=== PATIENT | female | born 1985 ===

== ENCOUNTER 2018-11-30 08:35 | Emergency (ER) | payer OTHER ==
[2018-11-30 08:42] VITALS: RESP 18
--- NOTE | 2018-11-30 09:40 | ED PDOC ---
HPI: Abdomen Time Seen by Provider: 11/30/18 09:08 Chief Complaint (Nursing): Female Genitourinary Chief Complaint (Provider): lower abdominal pain History Per: Patient History/Exam Limitations: no limitations Onset/Duration Of Symptoms: Days (x1 week), Worse Since (last night) Current Symptoms Are (Timing): Still Present Location Of Pain/Discomfort: Suprapubic Quality Of Discomfort: Cramping Associated Symptoms: Nausea, Diarrhea. denies: Fever, Chills, Vomiting, Urinary Symptoms Additional Complaint(s): Светлана Flores is a 33 year old female, with no significant past medical history, who presents to the emergency department complaining of a crampy lower abdominal pain ongoing for x1 week but worst since last night. Patient states pain is associated with nausea, diarrhea and dizziness. She also reports brown spotting yesterday. Patient's LMP was on 11/02/18. She denies any fever, chills, vaginal bleeding or urinary symptoms. No further medical complaints. PMD: None provided. Abnormal Vaginal Bleeding: No Last Menstral Period: 10/26 : 1 Para: 0 Miscarriage: 0 Past Medical History Reviewed: Historical Data, Nursing Documentation, Vital Signs Vital Signs: Last Vital Signs Temp 98.4 F 11/30/18 08:41 Pulse 95 H 11/30/18 08:41 Resp 18 11/30/18 08:41 BP 119/74 11/30/18 08:41 Pulse Ox 99 11/30/18 08:41 - Medical History PMH: No Chronic Diseases Denies: Chronic Kidney Disease - Surgical History Surgical History: Appendectomy - Family History Family History: States: Unknown Family Hx - Social History Current smoker - smoking cessation education provided: No Alcohol: None Drugs: Denies - Home Medications Home Medications: Ambulatory Orders Medication Instructions Recorded Doxylamine/Pyridoxine HCl (B6) 1 each PO QPM PRN #10 tablet. 11/30/18 [Alessandra Mensah 10-10 mg Tablet] Nitrofurantoin Macrocrystals 100 mg PO BID #9 cap 11/30/18 [Macrobid] Pnv No.95/Ferrous Fum/Folic AC 1 each PO DAILY #30 tablet 11/30/18 [ Vitamins Tablet] - Allergies Allergies/Adverse Reactions: Allergies Allergy/AdvReac Type Severity Reaction Status Date / Time No Known Allergies Allergy Verified 11/30/18 08:54 Review of Systems ROS Statement: Except As Marked, All Systems Reviewed And Found Negative Constitutional: Negative for: Fever, Chills Gastrointestinal: Positive for: Nausea, Abdominal Pain, Diarrhea. Negative for: Vomiting Genitourinary Female: Positive for: Other (brown spotting). Negative for: Dysuria, Frequency, Incontinence, Vaginal Discharge, Vaginal Bleeding Neurological: Positive for: Dizziness Physical Exam - Reviewed Nursing Documentation Reviewed: Yes Vital Signs Reviewed: Yes - Physical Exam Appears: Positive for: No Acute Distress Head Exam: Positive for: ATRAUMATIC, NORMAL INSPECTION, NORMOCEPHALIC Skin: Positive for: Normal Color, Warm, Dry Eye Exam: Positive for: Normal appearance, EOMI, PERRL Neck: Positive for: Normal, Painless ROM Cardiovascular/Chest: Positive for: Regular Rate, Rhythm. Negative for: Murmur Respiratory: Positive for: Normal Breath Sounds. Negative for: Respiratory Distress Gastrointestinal/Abdominal: Positive for: Tenderness (suprapubic tenderness to bilateral lower quadrants) Back: Positive for: Normal Inspection. Negative for: L CVA Tenderness, R CVA Tenderness, Vertebral Tenderness Extremity: Positive for: Normal ROM (upper and lower extremities). Negative for: Deformity, Swelling Neurologic/Psych: Positive for: Alert, Oriented. Negative for: Motor/Sensory Deficits - Laboratory Results Result Diagrams: 11/30/18 10:43 11/30/18 10:43 - ECG O2 Sat by Pulse Oximetry: 99 (RA) Pulse Ox Interpretation: Normal Medical Decision Making Medical Decision Making: Time: 09:08 Initial Impression: abdominal pain in Initial Plan: --ABO/RH Type --Type and screen --Beta-HCG Quantitative --CMP --Urine --Urine dipstick --CBC w/ differential --PTT --PT --Urinalysis --OB Transvaginal [US] --Reevaluation 11:53 Transvaginal US FINDINGS: UTERUS: Single Live intrauterine gestation. CRL measures 4.2 cm equivalent to 11 weeks and 1 day of gestational age. Gestational sac diameter measures 4.47 cm equivalent to 10 weeks and 0 day of gestational age. age (Ultrasound estimated): 10 weeks and 4 days Date of delivery (Ultrasound estimated) : 06/24/2019 Heart rate: 167 bpm. Nancy-gestational hemorrhage: None. Uterus measures 9.8 x 8.5 x 6.1 cm. No mass CERVIX: Long and closed. There is small amount of fluid in the endocervical canal. RIGHT OVARY: Measures 2.5 x 2.9 x 2.7 cm. No mass. Normal flow. There is a 2.1 x 1.9 x 2.1 cm corpus luteum cyst. LEFT OVARY: Measures 2.8 x 1.5 x 1.4 cm. No mass. Normal flow. FREE FLUID: None. OTHER FINDINGS: None. IMPRESSION: Single live intrauterine gestation with mean gestational age of 10 weeks and 4 days. The estimated date of delivery by ultrasound is 06/24/2019. Clinical correlation and follow-up is advised. 12:25 Upon provider evaluation patient is medically stable, and requires no further treatment in the ED at this time. Patient will be discharged home. Counseling was provided and all questions were answered regarding diagnosis and need for follow up with PMD. There is agreement to discharge plan. Return if symptoms persist or worsen. Scribe Attestation: Documented by Christian Heredia, acting as a scribe for Rita Davidson MD Provider Scribe Attestation: All medical record entries made by the Scribe were at my direction and personally dictated by me. I have reviewed the chart and agree that the record accurately reflects my personal performance of the history, physical exam, medical decision making, and the department course for this patient. I have also personally directed, reviewed, and agree with the discharge instructions and disposition. Disposition - Clinical Impression Clinical Impression: Abdominal pain in , UTI (urinary tract infection) during - Disposition [facility] Disposition: Routine/Home Disposition Time: 12:25 Condition: STABLE Prescriptions: Doxylamine/Pyridoxine HCl (B6) [Alessandra Mensah 10-10 mg Tablet] 1 each PO QPM PRN #10 tablet.dr PRN Reason: Nausea/Vomiting Nitrofurantoin Macrocrystals [Macrobid] 100 mg PO BID #9 cap Pnv No.95/Ferrous Fum/Folic AC [ Vitamins Tablet] 1 each PO DAILY #30 tablet Instructions: Urinary Tract Infection, Adult (DC), Acute Abdomen (Belly Pain) Forms: [facility] (Dominican) Print Language: MONTSERRATIAN
[2018-11-30 09:57] LABS: SQUAMOUS EPITHIAL 12 /hpf (0-5); URINE BACTERIA MOD (<OCC); URINE BILIRUBIN NEGATIVE (NEGATIVE); URINE BLOOD NEGATIVE (NEGATIVE); URINE CLARITY CLOUDY (Clear); URINE COLOR YELLOW (YELLOW); URINE GLUCOSE (UA) NEG (NEGATIVE); URINE LEUKOCYTE ESTERASE NEG Leu/uL (Negative); URINE PROTEIN NEGATIVE (NEGATIVE); URINE UROBILINOGEN 0.2-1.0 mg/dL (0.2-1.0)
[2018-11-30 10:59] LABS: BASO % 0.4 % (0.0-2.0); EOS # 0.1 K/uL (0.0-0.7); EOS % 0.9 % (0.0-4.0); HEMOGLOBIN 12.3 g/dL (12.0-16.0); LYMPH % 23.5 % (20.0-40.0); MEAN CELL VOLUME 92.3 fl (81.0-99.0); MEAN CORPUSCULAR HEMOGLOBIN 31.5 pg (27.0-31.0); MEAN CORPUSCULAR HGB CONC 34.1 g/dL (33.0-37.0); MEAN PLATELET VOLUME 9.3 fl (7.2-11.7); MONO # 0.7 K/uL (0.0-0.8); MONO % 8.8 % (0.0-10.0); NEUT # 5.5 K/uL (1.8-7.0); NEUT % 66.4 % (50.0-75.0); NRBC % 0.2 % (0.0-0.0); RBC 3.9 Mil/uL (3.80-5.20); RED CELL DISTRIBUTION WIDTH 13.2 % (11.5-14.5); WHITE BLOOD COUNT 8.3 K/uL (4.8-10.8)
[2018-11-30 11:05] LABS: PROTHROMBIN TIME 11.8 Seconds (9.8-13.1)
[2018-11-30 11:08] LABS: PARTIAL THROMBOPLASTIN TIME 29.8 Seconds (25.6-37.1)
[2018-11-30 11:14] LABS: ALB/GLOB RATIO 1.2 (1.0-2.1); ALBUMIN 4.2 g/dL (3.5-5.0); ALT/SGPT 18 U/L (9-52); AST/SGOT 21 U/L (14-36); BLOOD UREA NITROGEN 8 mg/dl (7-17); CALCIUM 9.3 mg/dL (8.4-10.2); GFR NON-AFRICAN AMERICAN > 60
--- NOTE | 2018-11-30 11:57 | US ---
Date of service: 11/30/2018 PROCEDURE: OB Pelvic Ultrasound HISTORY: Lower abdominal pain COMPARISON: None available. FINDINGS: UTERUS: Single Live intrauterine gestation. CRL measures 4.2 cm equivalent to 11 weeks and 1 day of gestational age. Gestational sac diameter measures 4.47 cm equivalent to 10 weeks and 0 day of gestational age. age (Ultrasound estimated): 10 weeks and 4 days Date of delivery (Ultrasound estimated) : 06/24/2019 Heart rate: 167 bpm. Nancy-gestational hemorrhage: None. Uterus measures 9.8 x 8.5 x 6.1 cm. No mass CERVIX: Long and closed. There is small amount of fluid in the endocervical canal. RIGHT OVARY: Measures 2.5 x 2.9 x 2.7 cm. No mass. Normal flow. There is a 2.1 x 1.9 x 2.1 cm corpus luteum cyst. LEFT OVARY: Measures 2.8 x 1.5 x 1.4 cm. No mass. Normal flow. FREE FLUID: None. OTHER FINDINGS: None. IMPRESSION: Single live intrauterine gestation with mean gestational age of 10 weeks and 4 days. The estimated date of delivery by ultrasound is 06/24/2019. Clinical correlation and follow-up is advised.
[2018-11-30 13:40] VITALS: BP 103/62; PULSE 71; TEMP 99.4
[2018-11-30 16:52] VITALS: O2SAT 99
== END 2018-11-30 13:40 | disposition home or self-care (01) ==
LOC: H.ER 08:35
DX: O23.41 Unspecified infection of urinary tract in pregnancy, first trimester (principal); Z3A.10 10 weeks gestation of pregnancy